=== PATIENT | male | born 1985 | race Caucasian/White ===

== ENCOUNTER 2024-10-31 12:05 | Emergency (ER) | payer BC, SELFPAY ==
--- NOTE | 2024-10-31 12:07 | ED.BACK ---
HPI - Back Pain/Injury General Stated Complaint: Low Back,Groin Pain Time Seen by Provider: 10/31/24 12:07 Source: patient Mode of arrival: ambulatory Limitations: no limitations History of Present Illness HPI Narrative: Fer is a 39-year-old male patient presenting to the clinic today with complaints of low back pain and right-sided groin pain x3 days. He reports 3 days ago he was lifting a very heavy object that he should not have been lifting and developed low back pain and groin pain. He is concerned he may have a hernia. Denies any urinary symptoms however he is complaining of right testicle pain. Rating pain currently a 2 to 3/10. Has taken Tylenol and ibuprofen for symptoms. Denies any saddle anesthesia or loss of bowel or bladder. Wearing jockstrap for support Related Data Allergies Allergy/AdvReac Type Severity Reaction Status Date / Time No Known Allergies Allergy Verified 10/31/24 12:11 Review of Systems Review of Systems: Pertinent positives per HPI. Patient denies any fever, chills, rash, headache, visual changes, dizziness, cough, runny nose, sore throat, shortness of breath, chest pain, palpitations, nausea, vomiting, diarrhea, constipation, abdominal pain, or any urinary issues. PMFSH Comments At the time of my signature, I reviewed and agree with the nursing past medical, surgical, social, and family history. There is no relevant family history pertinent to the patient complaint. Exam Narrative: General: Well-developed, well nourished, in no apparent distress. Head: Normocephalic, atraumatic. Cardio: Regular rate and rhythm, s1 and s2 normal, no murmur appreciated. Resp: Clear to auscultation bilaterally, no rhonchi, rales, wheezing or rubs. Abdomen: Soft, pliable, bowel sounds present in all quadrants, non-tender to palpation, no organomegly, no CVAT tenderness. Musculoskeletal: No deformity, tender to palpation over bilateral lower back, cautious movement, grossly normal range of motion, muscle strength strong and equal in BLE. SLT negative, patellar reflexes 2/4 bilaterally, negative foot drop, normal gait and station : Circumcised male without corneal adhesions, no lesions on the penis or scrotum, bilateral descended testes, cremasteric reflex present bilaterally, mildly tender to palpation over the right testicle Course Course Emergency Course: Portions of this record may have been created with voice recognition software. Level of Care: Express Care Visit Vital Signs Vital signs: Vital signs reviewed Transfer Transfered to: [facility] Transportation: Other (Private car) Transfer rationale: Low back pain, right groin/testicle pain Accepting physician: Dr. Cowart Transfer comments: Private car MDM - Back Pain/Injury MDM Narrative Medical decision making narrative: At the time of visit patient is resting comfortably on the exam table. Patient appears to be nontoxic. Complaints of low back pain and right-sided groin pain x3 days. He reports 3 days ago he was lifting a very heavy object that he should not have been lifting and developed low back pain and groin pain. He is concerned he may have a hernia. Denies any urinary symptoms however he is complaining of right testicle pain. Rating pain currently a 2 to 3/10. Has taken Tylenol and ibuprofen for symptoms. Denies any saddle anesthesia or loss of bowel or bladder. On exam patient has serous to palpation across the low back, no indirect or direct inguinal hernia palpable, no sign of femoral hernia, mildly tender to palpation over the right testicle. Plan: Patient is having right-sided groin/testicle pain with low back pain. Recommend transfer to the ER for further evaluation. Patient agrees to transfer and would like to go to [facility] ER. Patient to dry via private car. Contacted Rahul IZQUIERDO at [facility] and Dr. Cowart accepts patient for transfer. Differential Diagnosis Differential diagnosis: Likely lumbar radiculopathy, sciatica, strain of lumbar region, renal colic, discitis and other (Inguinal hernia, femoral hernia, epididymitis, testicular torsion) Discharge Plan Discharge Clinical Impression: Low back pain Qualifiers: Chronicity: acute Back pain laterality: bilateral Sciatica presence: without sciatica Qualified Code(s): M54.50 - Low back pain, unspecified Pain in testicle Qualifiers: Laterality: right Qualified Code(s): N50.811 - Right testicular pain Patient Disposition: Acute Care Hospital Condition: Stable Patient Language: British Follow-up/Referrals: UNKNOWN,DOCTOR [Non-Staff] Time of Disposition: 12:30 Quality NIHSS Nursing Documentation ED NIHSS nursing documentation: reviewed/agree
[2024-10-31 12:15] VITALS: BP 165/114; PULSE 70; RESP 18; TEMP 36.3; O2SAT 100
--- OUTSIDE RECORDS SUMMARY | 2024-10-31 12:16 | XMS_ITS | Clinical Summary ---
Author Organization [facility] Address [facility] [address] [place] [address] Care Team Providers Care [place] Sheriff Name Role Phone Celestina Dominguez NP Primary Care Provider [phone] Allergies No known active allergies Medications albuterol sulfate HFA 108 (90 Base) MCG/ACT inhaler 2 puffs every 4 (four) hours as needed. 11/23/2020 Active Active Problems Problem Noted Date Diagnosed Date Chronic cough 12/15/2020 COVID-19 11/25/2020 Immunizations Immunization Administration Dates Next Due PFIZER COVID-19 (ORIGINAL FO RMULATION, PURPLE CAP) mRNA, LNP-S, PF, 30 MCG/0.3 ML DOSE 11/12/2020 Family History Medical History Relation Comments Hypertension Mother Relation Status Comments Mother Social History Tobacco Use Types Packs/Day Years Used Date Smoking Tobacco: Never Smokeless Tobacco: Never Tobacco Cessation:Counseling Given: Yes Comments:The provider can provide you with more information about quitting. Alcohol Use Standard Drinks/Week Comments Not Currently 0 (1 standard drink = 0.6 oz pur e alcohol) Sex and Gender Information Value Date Recorded Sex Assigned at Not on file Legal Sex Male 8:27 AM CDT Gender Identity Not on file Sexual Orientation Not on file Last Filed Vital Signs Vital Sign Reading Time Taken Comments Blood Pressure 120/82 12/15/2020 12:56 PM CDT Pulse 85 12/15/2020 12:56 PM CDT Temperature 36.6 C (97.8 F) 12/15/2020 12:56 PM CDT Respiratory Rate 18 12/15/2020 12:56 PM CDT Oxygen Saturation 98% 12/15/2020 12:56 PM CDT Inhaled Oxygen Concentration - - Weight 105.2 kg (232 lb) 12/15/2020 12:56 PM CDT Height 188 cm (6' 2) 12/15/2020 12:56 PM CDT Body Mass Index 29.79 12/15/2020 12:56 PM CDT Plan of Treatment Health Maintenance Due Date Last Done Comments Annual Physical 1986 Hepatitis C 2001 DTaP, Tdap and Td Vaccines ( 1 - Tdap) 2002 Hepatitis B Vaccines (1 of 3 - 19+ 3-dose series) 2002 HPV Vaccines (1 - 3-dose SCD M series) 2010 COVID-19 Vaccine (2 - 2023-2 5 season) 2023 11/12/2020 Meningococcal B Vaccine Aged Out No l onger eligible based on patient's age to complete this topic Meningococcal Vaccine Aged Out No christopher rosemarie eligible based on patient's age to complete this topic Pneumococcal Vaccine: Pediat rics (0 to 5 Years) and At-Risk Patients (6 to 49 Years) Aged Out No longer eligi ble based on patient's age to complete this topic RSV Immunizations Under 20 Months Aged Out No longer eligible based on patient's age to complete this topic Insurance [facility] Care Teams [place] Sheriff Relationship Specialty Start Date End Date Celestina Dominguez NP [address] [place] [id number] PCP - General NURSE PRACTITIONER 12/13/20
== END 2024-10-31 12:38 | disposition short-term general hospital (02) ==
PROVIDERS: Emergency Provider Nurse Practitioner Family
DX: M54.50 Low back pain, unspecified (principal); N50.811 Right testicular pain
CPT/HCPCS: 99202; G0463